=== PATIENT | female | born 1980 | race American Indian/Alaskan Native ===

== ENCOUNTER 2018-05-19 14:42 | Emergency (ER) | payer OTHER ==
--- NOTE | 2018-05-19 15:12 | Emergency Department Report ---
Chief Complaint: Vaginal Bleeding Stated Complaint: MISCARRIAGE Time Seen by Provider: 05/19/18 15:10 - HPI History of Present Illness: LMP FEB 14 SENT BY [facility] FOR RETRAINED PRODUCTS AND TO SEE DR DUDLEY CO VAG BLEED AND PAIN G2 ALSO CO VAG DC MSE COMPLETED - Exam Vital Signs: Vital Signs 05/19/18 14:52 Temperature 98.4 F Pulse Rate 81 Respiratory 18 Rate Blood Pressure 151/83 [Right] O2 Sat by Pulse 99 Oximetry MSE screening note: Focused history and physical exam performed. Due to findings the following was ordered: ED Disposition for MSE Condition: Stable
[2018-05-19] MEDS ORDERED: TYLENOL PO ONE (15:46)
--- NOTE | 2018-05-19 15:47 | Emergency Department Report ---
ED HPI - General Chief complaint: Vaginal Bleeding Stated complaint: MISCARRIAGE Time Seen by Provider: 05/19/18 15:10 Source: patient Mode of arrival: Ambulatory Limitations: No Limitations - History of Present Illness Initial comments: This is a 38-year-old -[place] female who presents with vaginal bleeding during for 2 weeks. Patient states she was seen in 2 separate hospitals 2 weeks ago and confirmed active miscarriage. Patient states she went to see her TELE TECH Dr. Alas at [facility] on Tuesday and they michelle blood work and told her to follow up today. Patient states she went to the TELE TECH today and had an ultrasound and told the remains are still in and she will need have a D&C. She was referred to the emergency room to follow up with Dr. Mendoza. Complaint: abdominal pain, vaginal bleeding Onset/Timin -: week(s) Location: abdomen Radiation: none Severity: moderate Severity scale (0 -10): 9 Quality: cramping, sharp Consistency: intermittent Improves with: none Worsens with: none Associated symptoms: denies other symptoms Vaginal bleeding: heavy, clots :: Yes OB History - Current : no complications OB History - Previous Pregnancies: no complications Last menstrual period: 02/14/18 Pre-gallito care: followed by OB - Related Data : 2 Para: 0 Ab: 2 Previous Rx's Medication Instructions Recorded Last Taken Type Methylergonovine [Methergine] 0.2 mg PO Q8HR 1 Days #3 tablet 05/19/18 Unknown Rx Allergies Allergy/AdvReac Type Severity Reaction Status Date / Time ranitidine [From Zantac] AdvReac Headache Verified 05/19/18 15:10 ED Review of Systems ROS: Stated complaint: MISCARRIAGE Other details as noted in HPI Constitutional: denies: chills, fever Respiratory: denies: cough, shortness of breath, wheezing Cardiovascular: denies: chest pain, palpitations Gastrointestinal: abdominal pain. denies: nausea, diarrhea Genitourinary: other (vaginal bleeding and ). denies: urgency, dysuria, discharge Musculoskeletal: back pain. denies: joint swelling, arthralgia Skin: denies: rash, lesions Neurological: denies: headache, weakness, paresthesias Psychiatric: denies: anxiety, depression ED Past Medical Hx - Past Medical History Previous Medical History?: No - Surgical History Past Surgical History?: No - Social History Smoking Status: Never Smoker Substance Use Type: None - Medications Home Medications: Home Medications Medication Instructions Recorded Confirmed Last Taken Type Methylergonovine [Methergine] 0.2 mg PO Q8HR 1 Days #3 tablet 05/19/18 Unknown Rx ED Physical Exam - General Limitations: No Limitations General appearance: alert, in no apparent distress, obese - Respiratory Respiratory exam: Present: normal lung sounds bilaterally. Absent: respiratory distress - Cardiovascular Cardiovascular Exam: Present: regular rate, normal rhythm. Absent: systolic mur mur, diastolic murmur, rubs, gallop - GI/Abdominal GI/Abdominal exam: Present: soft, tenderness (suprapubic tenderness), normal bowel sounds. Absent: distended, guarding, rebound, rigid, organomegaly, mass - Back Exam Back exam: Present: normal inspection - Neurological Exam Neurological exam: Present: alert, oriented X3 - Psychiatric Psychiatric exam: Present: normal affect, normal mood - Skin Skin exam: Present: warm, dry, intact, normal color. Absent: rash ED Course Vital Signs 05/19/18 05/19/18 14:52 16:54 Temperature 98.4 F Pulse Rate 81 Respiratory 18 18 Rate Blood Pressure 151/83 [Right] O2 Sat by Pulse 99 Oximetry ED Medical Decision Making - Lab Data Result diagrams: 05/19/18 15:28 05/19/18 15:28 Lab Results 05/19/18 05/19/18 05/19/18 Range/Units 15:24 15:28 15:28 WBC 7.4 (4.5-11.0) K/mm3 RBC 4.53 (3.65-5.03) M/mm3 Hgb 11.8 (10.1-14.3) gm/dl Hct 36.1 (30.3-42.9) % MCV 80 (79-97) fl MCH 26 L (28-32) pg MCHC 33 (30-34) % RDW 14.3 (13.2-15.2) % Plt Count 350 (140-440) K/mm3 Sodium 137 (137-145) mmol/L Potassium 3.9 (3.6-5.0) mmol/L Chloride 102.9 (98-107) mmol/L Carbon Dioxide 25 (22-30) mmol/L Anion Gap 13 mmol/L BUN 4 L (7-17) mg/dL Creatinine 0.6 L (0.7-1.2) mg/dL Estimated GFR > 60 ml/min BUN/Creatinine Ratio 7 % Glucose 138 H (65-100) mg/dL Calcium 9.2 (8.4-10.2) mg/dL HCG, Quant (0-4) mIU/mL Urine Color Red (Yellow) Urine Turbidity Cloudy (Clear) Urine pH 6.0 (5.0-7.0) Ur Specific [place] 1.016 (1.003-1.030) Urine Protein 30 mg/dl (Negative) mg/dL Urine Glucose (UA) Neg (Negative) mg/dL Urine Ketones Neg (Negative) mg/dL Urine Blood Lg (Negative) Urine Nitrite Neg (Negative) Urine Bilirubin Neg (Negative) Urine Urobilinogen < 2.0 (<2.0) mg/dL Ur Leukocyte Esterase Neg (Negative) Urine WBC (Auto) 164.0 H (0.0-6.0) /HPF Urine RBC (Auto) > 182.0 (0.0-6.0) /HPF U Epithel Cells (Auto) 3.0 (0-13.0) /HPF Urine WBC Clumps 2+ /HPF Urine Yeast (Budding) 3+ /HPF Urine Sperm 1+ ([facility]) /HPF Blood Type Ord Rhogam Gestat Weeks WEEKS 05/19/18 05/19/18 Range/Units 15:28 15:28 WBC (4.5-11.0) K/mm3 RBC (3.65-5.03) M/mm3 Hgb (10.1-14.3) gm/dl Hct (30.3-42.9) % MCV (79-97) fl MCH (28-32) pg MCHC (30-34) % RDW (13.2-15.2) % Plt Count (140-440) K/mm3 Sodium (137-145) mmol/L Potassium (3.6-5.0) mmol/L Chloride (98-107) mmol/L Carbon Dioxide (22-30) mmol/L Anion Gap mmol/L BUN (7-17) mg/dL Creatinine (0.7-1.2) mg/dL Estimated GFR ml/min BUN/Creatinine Ratio % Glucose (65-100) mg/dL Calcium (8.4-10.2) mg/dL HCG, Quant 466.7 H (0-4) mIU/mL Urine Color (Yellow) Urine Turbidity (Clear) Urine pH (5.0-7.0) Ur Specific [place] (1.003-1.030) Urine Protein (Negative) mg/dL Urine Glucose (UA) (Negative) mg/dL Urine Ketones (Negative) mg/dL Urine Blood (Negative) Urine Nitrite (Negative) Urine Bilirubin (Negative) Urine Urobilinogen (<2.0) mg/dL Ur Leukocyte Esterase (Negative) Urine WBC (Auto) (0.0-6.0) /HPF Urine RBC (Auto) (0.0-6.0) /HPF U Epithel Cells (Auto) (0-13.0) /HPF Urine WBC Clumps /HPF Urine Yeast (Budding) /HPF Urine Sperm ([facility] [place]) /HPF Blood Type O POSITIVE Ord Rhogam Gestat Weeks Rh pos WEEKS - Radiology Data Radiology results: report reviewed PROCEDURE: US OB <= 14 WEEKS FETUS, US OB TRANSVAGINAL TECHNIQUE: Obstetrical transvesical and endovaginal sonographic imaging was performed HISTORY: PAIN LMP is unknown, vaginal bleeding, quantitative beta hCG 466.7, reportedly previous scan at doctor's office today showed no heartbeat COMPARISONS: None FINDINGS: Uterus measures 10.3 x 4.5 x 5.9 cm. Endometrial thickness measures 7 mm. No IUP is identified. Right ovary measures 3.0 x 3.5 x 1.8 cm with normal color flow, unremarkable appearance. Left ovary measures 2.8 x 3.3 x 3 cm and contains a 2.6 cm solid appearing lesion which may represent a resolving hemorrhagic cyst. IMPRESSION: No IUP is identified. Endometrial stripe measures 7 mm no evidence for significant retained products of conception or in progress. 2.6 cm solid appearing left adnexal lesion without ring of fire appearance low suspicion for ectopic . If patient has not had significant bleeding, recommend continued beta hCG measurements and surveillance with short interval ultrasound imaging in 3-5 days. - Medical Decision Making Patient was examined by me. Vitals are normal and patient is in no acute distress. Obtained a urinalysis, CBC, BMP, hCG quant, and OB ultrasound. Quant 466.7, all other labs unremarkable. No IUP is identified. Endometrial stripe measures 7 mm no evidence for significant retained products of conception or in progress. 2.6 cm solid appearing left adnexal lesion without ring of fire appearance low suspicion for ectopic . If patient has not had significant bleeding, recommend continued beta hCG measurements and surveillance with short interval ultrasound imaging in 3-5 days. Consulted attending and Dr. Mendoza TELE TECH My TELE TECH. Dr. Mendoza states patient is stable to start metherg ine 0.2 mg tid x 1 day. F/U in office with Dr. Mendoza on Tuesday or Tuesday. Patient discharged home in stable condition. Critical care attestation.: If time is entered above; I have spent that time in minutes in the direct care of this critically ill patient, excluding procedure time. ED Disposition Clinical Impression: Vaginal bleeding affecting early , Threatened miscarriage in early Disposition: TO HOME OR SELFCARE Is pt being admited?: No Does the pt Need Aspirin: No Condition: Stable Instructions: Threatened Miscarriage (ED) Additional Instructions: Have repeat hCG quant labs in 48 hours with TELE TECH or ER. Your quantitative on this visit was 466.7. Remain on bed rest. Follow up with TELE TECH in 24-48 hours. Return to ER if increased vaginal bleeding, abdominal pain, and low back pain. Prescriptions: Methylergonovine [Methergine] 0.2 mg PO Q8HR 1 Days #3 tablet Referrals: KELLI ROMEO MD [Primary Care Provider] - 3-5 Days [facility] [Provider Group] - 3-5 Days [facility] [Provider Group] - 3-5 Days Forms: Work/School Release Form(ED) Time of Disposition: 18:35
[2018-05-19 15:49] LABS: Hematocrit 36.1 % (30.3-42.9); Hemoglobin 11.8 gm/dl (10.1-14.3); Mean Corpuscular HGB Conc 33 % (30-34); Mean Corpuscular Volume 80 fl (79-97); Platelet Count 350 K/mm3 (140-440); Red Blood Count 4.53 M/mm3 (3.65-5.03); Red Cell Distribution Width 14.3 % (13.2-15.2)
[2018-05-19 15:53] LABS: Bilirubin,Urine NEG (Negative); Blood,Urine LG (Negative); Color,Urine Red (Yellow); Sperm,Urine 1+ /HPF (NP); Urobilinogen,Urine < 2.0 mg/dL (<2.0)
[2018-05-19 15:54] LABS: RBC,Urine > 182.0 /HPF (0.0-6.0)
[2018-05-19 16:05] LABS: BUN/Creatinine Ratio 7; Blood Urea Nitrogen 4 mg/dL (7-17); Calcium 9.2 mg/dL (8.4-10.2); Hemolysis Index 0
--- NOTE | 2018-05-19 17:57 | Ultrasound Report ---
PROCEDURE: US OB <= 14 WEEKS FETUS, US OB TRANSVAGINAL TECHNIQUE: Obstetrical transvesical and endovaginal sonographic imaging was performed HISTORY: PAIN LMP is unknown, vaginal bleeding, quantitative beta hCG 466.7, reportedly previous scan at doctor's office today showed no heartbeat COMPARISONS: None FINDINGS: Uterus measures 10.3 x 4.5 x 5.9 cm. Endometrial thickness measures 7 mm. No IUP is identified. Right ovary measures 3.0 x 3.5 x 1.8 cm with normal color flow, unremarkable appearance. Left ovary measures 2.8 x 3.3 x 3 cm and contains a 2.6 cm solid appearing lesion which may represent a resolving hemorrhagic cyst. IMPRESSION: No IUP is identified. Endometrial stripe measures 7 mm no evidence for significant retained products of conception or abort ion in progress. 2.6 cm solid appearing left adnexal lesion without ring of fire appearance low suspicion for ectopic . If patient has not had significant bleeding, recommend continued beta hCG measurements and surveillance with short interval ultrasound imaging in 3-5 days. This document is electronically signed by Leeann Dykes MD., May 19 2018 05:55:52 PM ET
[2018-05-19 18:47] VITALS: BP 148/80
== END 2018-05-19 18:46 | disposition home or self-care (01) ==
LOC: ED 14:42
DX: O20.0 Threatened abortion (principal); Z3A.10 10 weeks gestation of pregnancy
CPT/HCPCS: 36415; 76801; 76817; 80048; 81001; 84702; 85027; 86900; 86901